=== PATIENT | male | born 1995 | race Hispanic/Latino ===

== ENCOUNTER → 2017-02-21 | Emergency (ER) | payer OTHER ==
[~2017-02-21] VITALS: Ht 167.6 cm; Wt 57.6 kg
[~2017-02-21] MED LIST: CATAPRES0.1 MG PO
== END ==
LOC: ED 09:38
DX: F11.23 Opioid dependence with withdrawal (principal); F17.200 Nicotine dependence, unspecified, uncomplicated
CPT/HCPCS: 80053; 81001; 85025; 96361; 96374; 96375; 99283; J1200; J1885; J7120